=== PATIENT | male | born 2000 | race Caucasian/White ===

== ENCOUNTER 2025-09-06 16:38 | Emergency (ER) | payer OTHER ==
[~2025-09-06] VITALS: Ht 188 cm; Wt 72.6 kg
[2025-09-06 16:43] VITALS: BP 160/98; PULSE 85; RESP 16; TEMP 98; O2SAT 99
[2025-09-06] MEDS ORDERED: BENZ-14 PO (16:55)
[2025-09-06] MEDS ORDERED: FLUT9.9S NS (16:55)
== END 2025-09-06 17:10 | disposition home or self-care (01) ==
LOC: ER 16:38
DX: R09.81 Nasal congestion (principal)
CPT/HCPCS: 99283